=== PATIENT | female | born 1995 | race Caucasian/White ===

== ENCOUNTER 2020-10-28 01:53 | Emergency (ER) | payer BC, OTHER, SELFPAY ==
[2020-10-28 02:05] VITALS: BP 109/77; PULSE 88; RESP 16; TEMP 36.3; O2SAT 98
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
--- NOTE | 2020-10-28 04:19 | PC.NURSE ---
Call For Help advocate at bedside at this time.
--- NOTE | 2020-10-28 04:21 | PC.NURSE ---
Advocate arrived in ED. Currently in room c pt.
[2020-10-28 06:09] VITALS: BP 118/76; PULSE 74; RESP 12; O2SAT 100
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
[2020-10-28 09:30] VITALS: BP 114/70; PULSE 79; RESP 12; O2SAT 98
== END 2020-10-28 09:30 | disposition home or self-care (01) ==
PROVIDERS: Emergency Provider Emergency Medicine
DX: Z04.41 Encounter for examination and observation following alleged adult rape (principal)
CPT/HCPCS: 96372; 99285; J0696